=== PATIENT | female | born 1930 | race Caucasian/White ===

== ENCOUNTER → 2017-11-01 | Outpatient (CLI) | payer MEDICARE, OTHER ==
[~2017-11-01] MED LIST: AMITRIPTYLINE10 MG PO; AMLODIPINE5 MG PO; ASPIRIN ADULT L81 M1 PO; CENTRUM SILVER1 TAB PO; CIPRO 400400 MG/200 IV; CLEOCIN IV; HYDROCODONE BIT1 T11 PO; METOPROLOL SUCC50 M1 PO; OCUVITE1 TA2 PO; PRAVACHOL40 MG PO; PRAVASTATIN SOD10 MG PO; VICO75300 PO
== END | disposition home or self-care (01) ==
LOC: WOUNDCARE 00:42
DX: L97.522 Non-pressure chronic ulcer of other part of left foot with fat layer exposed (principal); I73.9 Peripheral vascular disease, unspecified; M86.8X8 Other osteomyelitis, other site; I10 Essential (primary) hypertension; G60.9 Hereditary and idiopathic neuropathy, unspecified; Z87.39 Personal history of other diseases of the musculoskeletal system and connective tissue; Z87.891 Personal history of nicotine dependence

== ENCOUNTER → 2017-11-09 | Outpatient (CLI) | payer MEDICARE, OTHER | END | disposition home or self-care (01) | LOC: WOUNDCARE 02:58 | DX: L97.522 Non-pressure chronic ulcer of other part of left foot with fat layer exposed (principal); I73.9 Peripheral vascular disease, unspecified; G60.9 Hereditary and idiopathic neuropathy, unspecified; I10 Essential (primary) hypertension; M86.8X8 Other osteomyelitis, other site; Z87.39 Personal history of other diseases of the musculoskeletal system and connective tissue; Z87.891 Personal history of nicotine dependence ==

== ENCOUNTER → 2017-11-16 | Outpatient (CLI) | payer MEDICARE, OTHER | LOC: WOUNDCARE 02:57 | DX: L97.522 Non-pressure chronic ulcer of other part of left foot with fat layer exposed (principal); I73.9 Peripheral vascular disease, unspecified; G60.9 Hereditary and idiopathic neuropathy, unspecified; I10 Essential (primary) hypertension; M86.9 Osteomyelitis, unspecified; Z87.891 Personal history of nicotine dependence; Z87.39 Personal history of other diseases of the musculoskeletal system and connective tissue ==

== ENCOUNTER → 2017-11-23 | Outpatient (CLI) | payer MEDICARE, OTHER | END | disposition home or self-care (01) | LOC: WOUNDCARE 04:27 | DX: L97.522 Non-pressure chronic ulcer of other part of left foot with fat layer exposed (principal); I73.9 Peripheral vascular disease, unspecified; G60.9 Hereditary and idiopathic neuropathy, unspecified; I10 Essential (primary) hypertension; M86.8X8 Other osteomyelitis, other site; Z87.891 Personal history of nicotine dependence; Z87.39 Personal history of other diseases of the musculoskeletal system and connective tissue ==

== ENCOUNTER → 2017-11-30 | Outpatient (CLI) | payer MEDICARE, OTHER | END | disposition home or self-care (01) | LOC: WOUNDCARE 02:07 | DX: L97.522 Non-pressure chronic ulcer of other part of left foot with fat layer exposed (principal); I73.9 Peripheral vascular disease, unspecified; G60.9 Hereditary and idiopathic neuropathy, unspecified; I10 Essential (primary) hypertension; M86.9 Osteomyelitis, unspecified; Z87.891 Personal history of nicotine dependence; Z87.39 Personal history of other diseases of the musculoskeletal system and connective tissue ==

== ENCOUNTER → 2017-12-07 | Outpatient (CLI) | payer MEDICARE, OTHER | END | disposition home or self-care (01) | LOC: WOUNDCARE 04:06 | DX: L97.522 Non-pressure chronic ulcer of other part of left foot with fat layer exposed (principal); G60.9 Hereditary and idiopathic neuropathy, unspecified; I73.9 Peripheral vascular disease, unspecified; I10 Essential (primary) hypertension; M86.9 Osteomyelitis, unspecified; Z87.39 Personal history of other diseases of the musculoskeletal system and connective tissue; Z87.891 Personal history of nicotine dependence ==

== ENCOUNTER → 2017-12-14 | Outpatient (CLI) | payer MEDICARE, OTHER | END | disposition home or self-care (01) | LOC: WOUNDCARE 02:32 | DX: L97.522 Non-pressure chronic ulcer of other part of left foot with fat layer exposed (principal); I10 Essential (primary) hypertension; I73.9 Peripheral vascular disease, unspecified; G60.9 Hereditary and idiopathic neuropathy, unspecified; M86.8X8 Other osteomyelitis, other site; Z87.39 Personal history of other diseases of the musculoskeletal system and connective tissue; Z87.891 Personal history of nicotine dependence ==

== ENCOUNTER → 2018-01-04 | Outpatient (CLI) | payer MEDICARE, OTHER | END | disposition home or self-care (01) | LOC: WOUNDCARE 05:42 | DX: L97.522 Non-pressure chronic ulcer of other part of left foot with fat layer exposed (principal); L03.116 Cellulitis of left lower limb; I73.9 Peripheral vascular disease, unspecified; M86.8X8 Other osteomyelitis, other site; G60.9 Hereditary and idiopathic neuropathy, unspecified; I10 Essential (primary) hypertension; Z86.39 Personal history of other endocrine, nutritional and metabolic disease; Z87.891 Personal history of nicotine dependence ==

== ENCOUNTER → 2018-01-11 | Outpatient (CLI) | payer MEDICARE, OTHER | END | disposition home or self-care (01) | LOC: WOUNDCARE 04:14 | DX: L97.522 Non-pressure chronic ulcer of other part of left foot with fat layer exposed (principal); I73.9 Peripheral vascular disease, unspecified; G60.9 Hereditary and idiopathic neuropathy, unspecified; Z87.39 Personal history of other diseases of the musculoskeletal system and connective tissue; I10 Essential (primary) hypertension; M86.8X8 Other osteomyelitis, other site; Z87.891 Personal history of nicotine dependence ==

== ENCOUNTER 2018-01-16 17:03 | Emergency (ER) | payer MEDICARE, OTHER ==
[~2018-01-16] VITALS: Wt 90.7 kg
--- NOTE | ~2018-01-16 | EKG ---
[place], [place] ELECTROCARDIOGRAM REPORT NAME: DEVIN JIANG UNIT #: [id number] ROOM: DOCTOR: EPIPHANY DRAFT REPORT BIRTHDATE: [birth year] [facility] Test Date: 2018-01-16 Test Time: 20:14:53 Pat Name: DEVIN JIANG Department: Room: Gender: F Area Plant Manager: : [id number] Requested By: MARQUISE BURNS PA-C Order Number: [id number] Reading MD: Measurements Intervals [place] Rate: 35 P: -4 SD: 115 QRS: -26 QRSD: 93 T: 51 QT: 571 QTc: 436 Interpretive Statements Sinus bradycardia Borderline short SD interval Inferior infarct, old No previous ECG available for comparison CM:EKGRPT:ELECTROCARDIOGRAM REPORT 13 1718 MARQUISE BURNS PA-C [facility] DRAFT REPORT MARQUISE BURNS PA-C
[2018-01-16 18:26] LABS: BASO % 0.5 % (0.0-1.0); EOS # 0.1 10*3/uL (0.0-0.4); EOS % 0.8 % (1.0-4.0); HEMATOCRIT 39.3 % (37.0-47.0); HEMOGLOBIN 12.4 g/dl (12.0-16.0); LYMPH # 2.1 10*3/uL (1.3-4.4); LYMPH % 24.5 % (27.0-41.0); MEAN CELL VOLUME 95.6 fl (81.0-99.0); MEAN CORPUSCULAR HGB 30.2 pg (27.0-31.0); MEAN CORPUSCULAR HGB CONC 31.6 g/dl (33.0-37.0); MEAN PLATELET VOLUME 11.1 fl (9.6-12.3); MONO # 0.7 10*3/uL (0.1-1.0); MONO % 7.6 % (3.0-9.0); NEUT # 5.8 10*3/uL (2.3-7.9); NEUT % 65.9 % (47.0-73.0); PLATELET COUNT AUTOMATED 203 10*3/uL (130-400); RED BLOOD COUNT 4.11 10*6/uL (4.10-5.10); RED CELL DISTRI WIDTH 15.1 % (0-14.5); WHITE BLOOD COUNT 8.7 10*3/uL (4.8-10.8)
[2018-01-16 18:48] LABS: ALBUMIN 3.6 gm/dl (3.1-4.5); ALKALINE PHOSPHATASE 114 U/L (45-117); BUN 24 mg/dl (7-24); CHLORIDE 103 mmol/L (98-107); POTASSIUM 5.4 mmol/L (3.5-5.1); SGOT/AST 67 IU/L (3-35); SGPT/ALT 51 U/L (12-78); SODIUM 135 mmol/L (136-145); TOTAL PROTEIN 7.2 gm/dL (6.4-8.2)
[2018-01-16 18:51] LABS: TROPONIN I < 0.015 ng/ml (<0.045)
[2018-01-16 19:38] LABS: BILIRUBIN NEGATIVE (NEGATIVE); BLOOD NEGATIVE (NEGATIVE); CLARITY CLOUDY (CLEAR); COLOR YELLOW (YELLOW); GLUCOSE NEGATIVE (NEGATIVE); KETONE TRACE (NEGATIVE); LEUKO ESTERASE 1+ (NEGATIVE); NITRITE NEGATIVE (NEGATIVE); PH 5.5 (5.0-9.0); SPECIFIC GRAVITY >= 1.030 (1.005-1.030); UROBILINOGEN 0.2 E.U./dl (0.2-1.0)
[2018-01-16 19:54] LABS: RBC 0-2 rbc/hpf (0-2)
[2018-01-16 19:55] LABS: BACTERIA 2+; MUCOUS TRACE
== END 2018-01-17 00:14 | disposition short-term general hospital (02) ==
LOC: ED 17:03
PROVIDERS: Physician Assistant
DX: N17.9 Acute kidney failure, unspecified (principal); R00.1 Bradycardia, unspecified; I95.9 Hypotension, unspecified; Z79.899 Other long term (current) drug therapy; Z79.82 Long term (current) use of aspirin; Z90.49 Acquired absence of other specified parts of digestive tract; Z90.710 Acquired absence of both cervix and uterus

== ENCOUNTER → 2018-02-08 | Outpatient (CLI) | payer MEDICARE, OTHER | END | disposition home or self-care (01) | LOC: WOUNDCARE 04:33 | DX: L97.522 Non-pressure chronic ulcer of other part of left foot with fat layer exposed (principal); I73.9 Peripheral vascular disease, unspecified; G60.9 Hereditary and idiopathic neuropathy, unspecified; I10 Essential (primary) hypertension; M86.9 Osteomyelitis, unspecified; Z87.891 Personal history of nicotine dependence; Z87.39 Personal history of other diseases of the musculoskeletal system and connective tissue ==

== ENCOUNTER → 2018-02-15 | Outpatient (CLI) | payer MEDICARE, OTHER | END | disposition home or self-care (01) | LOC: WOUNDCARE 07:24 | DX: L97.522 Non-pressure chronic ulcer of other part of left foot with fat layer exposed (principal); I73.9 Peripheral vascular disease, unspecified; L03.116 Cellulitis of left lower limb; G60.9 Hereditary and idiopathic neuropathy, unspecified; I10 Essential (primary) hypertension; M86.8X8 Other osteomyelitis, other site; Z87.891 Personal history of nicotine dependence; Z87.39 Personal history of other diseases of the musculoskeletal system and connective tissue ==

== ENCOUNTER → 2018-02-21 | Outpatient (CLI) | payer MEDICARE, OTHER | END | disposition home or self-care (01) | LOC: WOUNDCARE 03:36 | DX: L97.522 Non-pressure chronic ulcer of other part of left foot with fat layer exposed (principal); I73.9 Peripheral vascular disease, unspecified; G60.9 Hereditary and idiopathic neuropathy, unspecified; I10 Essential (primary) hypertension; M86.9 Osteomyelitis, unspecified; Z87.39 Personal history of other diseases of the musculoskeletal system and connective tissue; Z87.891 Personal history of nicotine dependence ==

== ENCOUNTER → 2018-02-28 | Outpatient (CLI) | payer MEDICARE, OTHER | END | disposition home or self-care (01) | LOC: WOUNDCARE 02:47 | DX: L97.522 Non-pressure chronic ulcer of other part of left foot with fat layer exposed (principal); L97.821 Non-pressure chronic ulcer of other part of left lower leg limited to breakdown of skin; I73.9 Peripheral vascular disease, unspecified; I10 Essential (primary) hypertension; Z87.39 Personal history of other diseases of the musculoskeletal system and connective tissue; Z87.891 Personal history of nicotine dependence ==

== ENCOUNTER → 2018-03-06 | Outpatient (CLI) | payer MEDICARE, OTHER | END | disposition home or self-care (01) | LOC: WOUNDCARE 01:26 | DX: S91.302D Unspecified open wound, left foot, subsequent encounter (principal); S80.812D Abrasion, left lower leg, subsequent encounter; I10 Essential (primary) hypertension; M86.9 Osteomyelitis, unspecified; Z87.891 Personal history of nicotine dependence; X58.XXXD Exposure to other specified factors, subsequent encounter ==

== ENCOUNTER → 2018-03-08 | Outpatient (CLI) | payer MEDICARE, OTHER | END | disposition home or self-care (01) | LOC: WOUNDCARE 01:06 | DX: L97.522 Non-pressure chronic ulcer of other part of left foot with fat layer exposed (principal); I10 Essential (primary) hypertension; I73.9 Peripheral vascular disease, unspecified; G60.9 Hereditary and idiopathic neuropathy, unspecified; M86.9 Osteomyelitis, unspecified; Z87.39 Personal history of other diseases of the musculoskeletal system and connective tissue; Z87.891 Personal history of nicotine dependence ==

== ENCOUNTER → 2018-03-15 | Outpatient (CLI) | payer MEDICARE, OTHER | END | disposition home or self-care (01) | LOC: WOUNDCARE 02:12 | DX: L97.522 Non-pressure chronic ulcer of other part of left foot with fat layer exposed (principal); L84 Corns and callosities; I73.9 Peripheral vascular disease, unspecified; I10 Essential (primary) hypertension; G60.9 Hereditary and idiopathic neuropathy, unspecified; M86.9 Osteomyelitis, unspecified; Z87.891 Personal history of nicotine dependence; Z87.39 Personal history of other diseases of the musculoskeletal system and connective tissue ==

== ENCOUNTER → 2018-04-08 | Outpatient (CLI) | payer MEDICARE, OTHER | END | disposition home or self-care (01) | LOC: WOUNDCARE 03:59 | DX: L97.522 Non-pressure chronic ulcer of other part of left foot with fat layer exposed (principal); I73.9 Peripheral vascular disease, unspecified; G60.9 Hereditary and idiopathic neuropathy, unspecified; I10 Essential (primary) hypertension; M86.9 Osteomyelitis, unspecified; Z87.891 Personal history of nicotine dependence ==

== ENCOUNTER → 2018-04-19 | Outpatient (CLI) | payer MEDICARE, OTHER | END | disposition home or self-care (01) | LOC: WOUNDCARE 01:01 | DX: L97.522 Non-pressure chronic ulcer of other part of left foot with fat layer exposed (principal); I73.9 Peripheral vascular disease, unspecified; G60.9 Hereditary and idiopathic neuropathy, unspecified; Z87.39 Personal history of other diseases of the musculoskeletal system and connective tissue; I10 Essential (primary) hypertension; M86.9 Osteomyelitis, unspecified; Z87.891 Personal history of nicotine dependence ==

== ENCOUNTER → 2018-05-03 | Outpatient (CLI) | payer MEDICARE, OTHER | END | disposition home or self-care (01) | LOC: WOUNDCARE 01:34 | DX: L97.522 Non-pressure chronic ulcer of other part of left foot with fat layer exposed (principal); I73.9 Peripheral vascular disease, unspecified; G60.9 Hereditary and idiopathic neuropathy, unspecified; I10 Essential (primary) hypertension; M86.9 Osteomyelitis, unspecified; Z87.891 Personal history of nicotine dependence; Z87.39 Personal history of other diseases of the musculoskeletal system and connective tissue ==

== ENCOUNTER → 2018-05-10 | Outpatient (CLI) | payer MEDICARE, OTHER ==
[~2018-05-10] MED LIST changes: +CEPHALEXIN500 M1 PO
== END | disposition home or self-care (01) ==
LOC: WOUNDCARE 04:04
DX: L97.522 Non-pressure chronic ulcer of other part of left foot with fat layer exposed (principal); R60.0 Localized edema; I73.9 Peripheral vascular disease, unspecified; G60.9 Hereditary and idiopathic neuropathy, unspecified; I10 Essential (primary) hypertension; M86.9 Osteomyelitis, unspecified; Z87.891 Personal history of nicotine dependence; Z87.39 Personal history of other diseases of the musculoskeletal system and connective tissue

== ENCOUNTER → 2018-06-07 | Outpatient (CLI) | payer MEDICARE, OTHER ==
[~2018-06-07] MED LIST changes: -CEPHALEXIN500 M1 PO
== END | disposition home or self-care (01) ==
LOC: WOUNDCARE 03:08
DX: L97.522 Non-pressure chronic ulcer of other part of left foot with fat layer exposed (principal); I10 Essential (primary) hypertension; I73.9 Peripheral vascular disease, unspecified; G60.9 Hereditary and idiopathic neuropathy, unspecified; Z87.39 Personal history of other diseases of the musculoskeletal system and connective tissue; Z87.891 Personal history of nicotine dependence

== ENCOUNTER → 2018-06-21 | Outpatient (CLI) | payer MEDICARE, OTHER | END | disposition home or self-care (01) | LOC: WOUNDCARE 01:09 | DX: L97.522 Non-pressure chronic ulcer of other part of left foot with fat layer exposed (principal); I73.9 Peripheral vascular disease, unspecified; G60.9 Hereditary and idiopathic neuropathy, unspecified; I10 Essential (primary) hypertension; M86.8X7 Other osteomyelitis, ankle and foot; Z87.39 Personal history of other diseases of the musculoskeletal system and connective tissue; Z87.891 Personal history of nicotine dependence ==

== ENCOUNTER → 2018-06-28 | Outpatient (CLI) | payer MEDICARE, OTHER ==
[~2018-06-28] MED LIST changes: +CEPHALEXIN500 M1 PO
== END | disposition home or self-care (01) ==
LOC: WOUNDCARE 02:36
DX: L97.522 Non-pressure chronic ulcer of other part of left foot with fat layer exposed (principal); I73.9 Peripheral vascular disease, unspecified; G60.9 Hereditary and idiopathic neuropathy, unspecified; I10 Essential (primary) hypertension; M86.8X7 Other osteomyelitis, ankle and foot; Z87.39 Personal history of other diseases of the musculoskeletal system and connective tissue; Z87.891 Personal history of nicotine dependence

== ENCOUNTER → 2018-07-05 | Outpatient (CLI) | payer MEDICARE, OTHER | END | disposition home or self-care (01) | LOC: WOUNDCARE 02:06 | DX: L97.522 Non-pressure chronic ulcer of other part of left foot with fat layer exposed (principal); L03.116 Cellulitis of left lower limb; I73.9 Peripheral vascular disease, unspecified; G60.9 Hereditary and idiopathic neuropathy, unspecified; I10 Essential (primary) hypertension; M86.8X7 Other osteomyelitis, ankle and foot; Z87.891 Personal history of nicotine dependence; Z87.39 Personal history of other diseases of the musculoskeletal system and connective tissue ==

== ENCOUNTER → 2018-08-29 | Outpatient (CLI) | payer MEDICARE, OTHER | END | disposition home or self-care (01) | LOC: WOUNDCARE 00:16 | DX: L97.522 Non-pressure chronic ulcer of other part of left foot with fat layer exposed (principal); L03.116 Cellulitis of left lower limb; S61.211D Laceration without foreign body of left index finger without damage to nail, subsequent encounter; I73.9 Peripheral vascular disease, unspecified; G60.9 Hereditary and idiopathic neuropathy, unspecified; I10 Essential (primary) hypertension; M86.8X7 Other osteomyelitis, ankle and foot; Z87.891 Personal history of nicotine dependence; Z87.39 Personal history of other diseases of the musculoskeletal system and connective tissue; X58.XXXD Exposure to other specified factors, subsequent encounter ==

== ENCOUNTER → 2018-09-06 | Outpatient (CLI) | payer MEDICARE, OTHER | END | disposition home or self-care (01) | LOC: WOUNDCARE 00:50 | DX: L97.522 Non-pressure chronic ulcer of other part of left foot with fat layer exposed (principal); L03.116 Cellulitis of left lower limb; I10 Essential (primary) hypertension; I73.9 Peripheral vascular disease, unspecified; G60.9 Hereditary and idiopathic neuropathy, unspecified; M86.9 Osteomyelitis, unspecified; Z87.39 Personal history of other diseases of the musculoskeletal system and connective tissue; Z87.891 Personal history of nicotine dependence ==

== ENCOUNTER → 2018-09-13 | Outpatient (CLI) | payer MEDICARE, OTHER | END | disposition home or self-care (01) | LOC: WOUNDCARE 09-12 01:21 → EDSTATUS 09-12 15:55 → WOUNDCARE 09-12 16:00 | DX: T23.211A Burn of second degree of right thumb (nail), initial encounter (principal); L97.522 Non-pressure chronic ulcer of other part of left foot with fat layer exposed; T31.0 Burns involving less than 10% of body surface; I10 Essential (primary) hypertension; I73.9 Peripheral vascular disease, unspecified; G60.9 Hereditary and idiopathic neuropathy, unspecified; M86.9 Osteomyelitis, unspecified; L03.116 Cellulitis of left lower limb; Z87.39 Personal history of other diseases of the musculoskeletal system and connective tissue; Z87.891 Personal history of nicotine dependence; Y26.XXXA Exposure to smoke, fire and flames, undetermined intent, initial encounter; Y93.89 Activity, other specified; Y92.89 Other specified places as the place of occurrence of the external cause; Y99.8 Other external cause status ==

== ENCOUNTER → 2018-11-01 | Outpatient (CLI) | payer MEDICARE, OTHER ==
[~2018-11-01] MED LIST changes: +HYDROCODONE-AC1 EAC1 PO; +NEURONTIN300 MG PO; +VITAMIN D32000 UNI1 PO
== END | disposition home or self-care (01) ==
LOC: WOUNDCARE 01:30
DX: L97.522 Non-pressure chronic ulcer of other part of left foot with fat layer exposed (principal); S61.211D Laceration without foreign body of left index finger without damage to nail, subsequent encounter; S90.932D Unspecified superficial injury of left great toe, subsequent encounter; I73.9 Peripheral vascular disease, unspecified; G60.9 Hereditary and idiopathic neuropathy, unspecified; I10 Essential (primary) hypertension; M86.8X7 Other osteomyelitis, ankle and foot; Z87.891 Personal history of nicotine dependence; Z87.39 Personal history of other diseases of the musculoskeletal system and connective tissue

== ENCOUNTER → 2018-12-06 | Outpatient (CLI) | payer MEDICARE, OTHER ==
[~2018-12-06] MED LIST changes: -HYDROCODONE-AC1 EAC1 PO; -NEURONTIN300 MG PO; -VITAMIN D32000 UNI1 PO
[2018-12-06 15:01] LABS: BASO % 0.7 % (0.0-1.0); EOS # 0.2 10*3/uL (0.0-0.4); EOS % 3.4 % (1.0-4.0); HEMATOCRIT 42.4 % (37.0-47.0); HEMOGLOBIN 13.4 g/dl (12.0-16.0); LYMPH # 1.9 10*3/uL (1.3-4.4); LYMPH % 31.2 % (27.0-41.0); MEAN CELL VOLUME 98.1 fl (81.0-99.0); MEAN CORPUSCULAR HGB CONC 31.6 g/dl (33.0-37.0); MEAN PLATELET VOLUME 11.1 fl (9.6-12.3); MONO # 0.7 10*3/uL (0.1-1.0); MONO % 11.2 % (3.0-9.0); NEUT # 3.2 10*3/uL (2.3-7.9); PLATELET COUNT AUTOMATED 206 10*3/uL (130-400); RED BLOOD COUNT 4.32 10*6/uL (4.10-5.10); RED CELL DISTRI WIDTH 14.6 % (0-14.5)
[2018-12-06 15:35] LABS: ALBUMIN 3.8 gm/dl (3.1-4.5); CREATININE 1.15 mg/dL (0.55-1.02); FREE T4 0.97 ng/dl (0.76-1.46); POTASSIUM 4.2 mmol/L (3.5-5.1); TOTAL PROTEIN 7.6 gm/dL (6.4-8.2)
[2018-12-06 15:42] LABS: THYROID STIM HORMONE (HS) 2.05 uIU/ml (0.358-4.75)
[2018-12-06 15:56] LABS: VITAMIN D, 25-HYDROXY 25.4 ng/mL (30-100)
== END | disposition home or self-care (01) ==
LOC: LAB 14:12
PROVIDERS: Internal Medicine
DX: E78.2 Mixed hyperlipidemia (principal); E11.9 Type 2 diabetes mellitus without complications; I10 Essential (primary) hypertension; E55.9 Vitamin D deficiency, unspecified; D52.9 Folate deficiency anemia, unspecified; D51.9 Vitamin B12 deficiency anemia, unspecified

== ENCOUNTER 2019-01-02 14:00 | Inpatient (IN) | payer MEDICARE, OTHER ==
[~2019-01-02] VITALS: Ht 157.4 cm; Wt 99.0 kg
--- NOTE | ~2019-01-02 | WRIGHTHP ---
[place], [place] PATIENT HISTORY AND PHYSICAL EXAM NAME: DEVIN JIANG UNIT #: [id number] ROOM: 506 DOCTOR: ERNST MONTERO MD BIRTHDATE: [birth year] DOS: 01/02/2019 HISTORY OF PRESENT ILLNESS: This patient is 88 years old. She has chronic poorly healing wounds of the left foot, is seen by the wound clinic, was told to come into the Emergency Room with redness and swelling of the left foot. The patient this morning does not have any complaints. Denies any fever or chills, does not have any abdominal pain, nausea, emesis. Does not have any chest pains or palpitations. She has been on doxycycline as an outpatient. She had a small punctate wound on the big toe with some surrounding redness yesterday and it was worried that this infection was getting worse. PAST MEDICAL HISTORY: Significant for: 1. Chronic peripheral neuropathy with chronic pain. 2. History of osteomyelitis of the toes. 3. Benign hypertension. 4. Coronary artery disease. 5. Primary osteoarthritis. MEDICATIONS: She is currently on are aspirin 81, amlodipine 5, vitamin D 2000, gabapentin 300 t.i.d., Redbird 5 t.i.d., multivitamin 1 tablet daily, Pravachol 40 daily. SOCIAL HISTORY: Nonsmoker, does not use any alcohol. She lives at home with her . PHYSICAL EXAMINATION: GENERAL: She is awake and alert and oriented. VITAL SIGNS: Graphic trend shows a pressure 132/51, pulse of 70, respirations 20, temperature 98.0. LUNGS: Diminished breath sounds. No wheezes, rales or rhonchi heard. HEART: Regular. ABDOMEN: Obese, soft, nontender. EXTREMITIES: Without any edema on the right. Deformed left foot from previous surgeries, small ulcer noticed on the top of the big toe with some minimal redness around. The area was marked yesterday with a blue marker, this area seems to be much smaller this morning. The redness seems to be much smaller this morning. ASSESSMENT AND PLAN: 1. Ulcer of the left big toe area with some minimal cellulitis, on IV antibiotics. The ESR and CRP done were fairly on the low side. ESR 11, CRP 1.22. Doubt there is any deep-seated infection, but an MRI is ordered. 2. Chronic peripheral neuropathy, on gabapentin load and chronic pain management with opiates. We will do an arterial Doppler this morning. 3. Benign hypertension, controlled. 4. Coronary artery disease. Check echocardiogram. [place], [place] PATIENT HISTORY AND PHYSICAL EXAM NAME: DEVIN JIANG UNIT #: [id number] ROOM: [facility] DOCTOR: ERNST MONTERO MD BIRTHDATE: [birth year] ERNST MONTERO MD CM:HISPHYS:PATIENT HISTORY AND PHYSICAL EXAMINATION [id number] ERNST MONTERO MD 01/03/19804 interface
--- NOTE | ~2019-01-02 | DS ---
[place], [place] DISCHARGE SUMMARY NAME: DEVIN JIANG UNIT #: [id number] ROOM: 506 DOCTOR: JESI HASSANMARYURI Florez BIRTHDATE: [birth year] DOS: 01/04/2019 DISCHARGE DIAGNOSES: 1. The patient with cellulitis and osteomyelitis of the first digit of the left foot, to follow up with her yarder boss and follow up with Wound Care Center at [facility]. 2. Chronic peripheral neuropathy. 3. Benign essential hypertension. 4. Coronary artery disease of the [place] vessels. 5. Primary osteoarthritis. HOSPITAL COURSE: The patient was admitted by Dr. Jacquelyn Mireles when she presented with chronic poorly healing wounds of the left foot, being followed by Podiatry and wound center at [facility]. The patient was found to have cellulitis and also osteomyelitis of the first digit of the left foot. She had no fever or chills. Blood cultures are negative, no leukocytosis. The patient was on doxycycline as an outpatient and had a small punctate wound on the toe of the left foot. The patient decided to follow up with Podiatry and since she is asymptomatic otherwise being discharged to home. She has no leukocytosis or any signs of any acute infection. The situation appears to be chronic and needs to be managed at the wound center and by the Podiatry. 1. Chronic peripheral neuropathy with pain controlled with gabapentin. 2. Benign essential hypertension, treated and controlled. The patient is on amlodipine. 3. Mixed hyperlipidemia, treated with simvastatin. 4. Pains are controlled with hydrocodone. LABORATORY DATA: Blood cultures were negative so far. Arterial Dopplers were performed of the lower extremities including echocardiogram with normal left ventricular ejection fraction at 60%. MRI of the foot study showing osteomyelitis of the first digit of the left foot. Hemoglobin A1c was normal at 6 DISCHARGE MANAGEMENT: The patient takes multivitamin daily, vitamin D 2000 units daily, aspirin 81 mg daily, amlodipine 5 mg daily, simvastatin 20 mg a day, gabapentin 300 mg 3 times a day and Vicodin as needed for pain, takes Gadavist intravenously, simvastatin 20 mg daily, gabapentin 300 mg 3 times a day. [place], [place] DISCHARGE SUMMARY NAME: DEVIN JIANG UNIT #: [id number] ROOM: 506 DOCTOR: MARYURI DENNISON MD BIRTHDATE: [birth year] MARYURI DENNISON MD CM:KEV [id number] MARYURI DENNISON MD 01/04/19 2031 interface
[2019-01-02 14:05] VITALS: BP 155/64
[2019-01-02 14:43] LABS: BASO % 0.7 % (0.0-1.0); EOS # 0.2 10*3/uL (0.0-0.4); EOS % 3.4 % (1.0-4.0); HEMATOCRIT 39.6 % (37.0-47.0); HEMOGLOBIN 12.7 g/dl (12.0-16.0); LYMPH # 2.1 10*3/uL (1.3-4.4); LYMPH % 36.7 % (27.0-41.0); MEAN CELL VOLUME 95.2 fl (81.0-99.0); MEAN CORPUSCULAR HGB 30.5 pg (27.0-31.0); MEAN CORPUSCULAR HGB CONC 32.1 g/dl (33.0-37.0); MEAN PLATELET VOLUME 10.8 fl (9.6-12.3); MONO # 0.7 10*3/uL (0.1-1.0); MONO % 12.9 % (3.0-9.0); NEUT # 2.6 10*3/uL (2.3-7.9); NEUT % 45.8 % (47.0-73.0); PLATELET COUNT AUTOMATED 192 10*3/uL (130-400); RED BLOOD COUNT 4.16 10*6/uL (4.10-5.10); RED CELL DISTRI WIDTH 14.9 % (0-14.5); WHITE BLOOD COUNT 5.6 10*3/uL (4.8-10.8)
[2019-01-02 14:59] LABS: CREATININE 1.21 mg/dL (0.55-1.02); POTASSIUM 4.2 mmol/L (3.5-5.1)
[2019-01-02 15:50] VITALS: BP 162/66
[2019-01-02 16:03] LABS: BILIRUBIN NEGATIVE (NEGATIVE); BLOOD NEGATIVE (NEGATIVE); CLARITY CLEAR (CLEAR); COLOR YELLOW (YELLOW); GLUCOSE NEGATIVE (NEGATIVE); KETONE NEGATIVE (NEGATIVE); LEUKO ESTERASE NEGATIVE (NEGATIVE); NITRITE NEGATIVE (NEGATIVE); PH 5.5 (5.0-9.0); UROBILINOGEN 0.2 E.U./dl (0.2-1.0)
[2019-01-02 16:14] LABS: WBC 0-2 wbc/hpf (0-5)
[2019-01-02 16:30] VITALS: BP 140/60
--- NOTE | 2019-01-02 16:30 | NUR ---
A 88, admitted to , under the services of ERNST Lay MD with a diagnosis of WOUND CELLULITIS OF LEFT FOOT. Chief complaint is WOUND CHECK. Patient arrived via bed from ER. Monitor applied. Initial assessment completed. Vital signs taken and recorded. ERNST LAY MD notified of admission to the unit. Orders received. See assessment for past medical history, medications and allergies. Patient and/or family oriented to unit. [facility] visitation policy reviewed. Clothing/patient valuable form completed. MARQUISE CARBAJAL
[2019-01-02] MEDS ORDERED: NEURONTIN300 MG PO (17:47)
[2019-01-02] MEDS ORDERED: VITAMIN D32000 UNI1 PO (17:48)
[2019-01-02] MEDS ORDERED: HYDROCODONE-AC1 EAC1 PO (17:49)
--- NOTE | 2019-01-02 17:50 | NUR ---
VERIFIED HOME MEDICATIONS WITH [facility] IN [facility].
--- NOTE | 2019-01-02 18:00 | NUR ---
CALLED DR MONTERO TO OBTAIN ADMISSION ORDERS.
--- NOTE | 2019-01-02 19:33 | NUR ---
WOUND CARE ORDERS OBTAINED FROM DR MONTERO FOR PT L FOOT STAGE 2 WOUND- MAXORB AND DRY CLEAN DRESSING
[2019-01-02 20:00] VITALS: BP 141/58
--- NOTE | 2019-01-02 20:30 | NUR ---
MEDICATED WITH NORCO FOR C/O BILATERAL KNEE PAIN RATED A 6/10.
--- NOTE | 2019-01-02 22:30 | NUR ---
RESTING IN BED WITH EYES CLOSED; NORCO GIVEN EARLIER APPARENTLY EFFECTIVE.
[2019-01-03] VITALS: BP 132/51
--- NOTE | 2019-01-03 05:10 | NUR ---
DEVIN JIANG [id number] Please refer to the physician's history and physical for past medical history, comorbid conditions, and allergies. Diagnosis: WOUND CELLULITIS VISIT FOR WOUND CHECK Dc Score: 15,AT RISK WOUND DESCRIPTIONS: Wound Number: 1 Location of the wound: left great toe Type of wound: traumatic Thickness: Full Size: 0.6cm x 0.5cm x 0.4cm Tunneling: none Undermining: none Sinus Tract: none Presence of Exudate: Purulent Amount: Light Color: Yellow, red Odor: None Periwound Skin Appearance: Erythema Wound edges: approximated Pain (associated with wound): none at time of assessment How does patient state this happened? pt stated that she has been going to the wound care center for about 1 year was healed then reopened it due to hitting it off of something and she follows with [facility] and wants to continue following with her on the inpatient side as well. Surface the patient is resting on: Isoflex SKIN PREVENTION RECOMMENDATION: 1. Pressure redistribution support surface as appropriate 2. Elevate heels 3. Remove boots/TEDS every shift and reapply 4. Head of bed 30 degrees as tolerated 5. Assess nutrition and hydration 6. Manage moisture 7. Avoid the use of containment devices while in bed 8. Use absorptive products on surfaces limit layers of linens on bed 9. Turn and reposition every 1-2 hours in bed and every 1 hour in chair as tolerated 10. Weight shifts every 15 minutes while up in chair 11. Offloading with pillows or device to keep heels elevated off bed 12. Monitor skin at least every shift 13. Inspect under medical devices twice a day WOUND TREATMENT RECOMMENDATIONS: Consult [facility] patient request follows in the wound care center. Venous and arterial studies to BLE's due to non-healing wound. Imaging studies to area were already completed yesterday and MRI is pending at this time. Full thickness guidelines: Cleanse left medial aspect of great toe with nss and apply maxorb ag, 4x4 abd pad, and lightly wrap with kerlix. Change every other day and as needed. Do not bathe or shower with open wound. (wound care center orders) Heel raiser pro boots to bilateral heels while in bed.
[2019-01-03 08:00] VITALS: BP 158/60
--- NOTE | 2019-01-03 11:00 | NUR ---
MRI RESULTS REPORTED TO . Devika CONSULT ORDERED. NOTIFIED ANSWERING SERVICE OF CONSULT.
[2019-01-03 12:00] VITALS: BP 147/62
--- NOTE | 2019-01-03 13:28 | NUR ---
SPOKE WITH ; SHE SAID TO HOLD OFF ON ALL ANTIBIOTICS FOR NOW UNTIL PT IS SEEN BY PODIATRY. SHE IS AWARE THAT PATIENT IS REFUSING TO BE SEEN BY PODIATRY THAT COMES HERE.
--- NOTE | 2019-01-03 14:39 | NUR ---
Rotary Envelope Machine Operator in to talk to patient. Patient states lives at home with her . There are 0 steps in the home. Physician: Dr. Jacquelyn Mireles Pharmacy: [facility] Patient's level of ADLs: MAX ASSIST Patient has working utilities: yes DME: electric wheelchair Follow-up physician's appointment after d/c: she prefers to make her own follow up appt after discharge Does patient want to access PORTAL?: no Discharge plan discussed with patient. She lives at home with her . Her and her daughter, Janneth, are at the bedside. She needs moderate assistance with her ADLs and gets around in an electric wheelchair. Discussed home health care services and she currently has [facility] in [facility] home which she would like to resume on discharge. When medically stable she will be discharged to home with the resumption of her home health care services. Daughter, Janneth, will transport on discharge. KIP DAWSON
[2019-01-03 16:00] VITALS: BP 145/40
--- NOTE | 2019-01-03 16:26 | NUR ---
MEDICATED WITH PO NORCO ORDERED PER PT REQUEST FOR C/O BILATERAL KNEE PAIN RATED 8/10.
[2019-01-03 20:00] VITALS: BP 141/49
--- NOTE | 2019-01-03 20:35 | NUR ---
NORCO GIVEN FOR C/O PAIN TO RT FOOT RATED 8/10. CALL LIGHT IN REACH. BED ALARM ON. WILL MONITOR FOR EFFECTIVENESS.
--- NOTE | 2019-01-03 21:34 | NUR ---
PER PT, NORCO WAS EFFECTIVE FOR COMPLAINTS OF PAIN TO RT FOOT. CALL LIGHT IN REACH.
[2019-01-04] VITALS: BP 113/62
--- NOTE | 2019-01-04 05:39 | NUR ---
TOLERATED ROUTINE PO MEDS WELL. COMPLAINTS TO RT FOOT PAIN RATED 6/10. CALL LIGHT IN REACH. NORCO PROVIDED. WILL MONITOR.
--- NOTE | 2019-01-04 06:01 | NUR ---
24 HOUR CHART CHECK COMPLETED
--- NOTE | 2019-01-04 06:15 | NUR ---
SLEEPING. NO SXS OF DISTRESS NOTED. CALL LIGHT IN REACH. NORCO SEEMS TO BE EFFECTIVE FOR COMPLAINTS OF PAIN EARLIER.
[2019-01-04 08:00] VITALS: BP 135/50
--- NOTE | 2019-01-04 08:30 | NUR ---
Patient resting quietly with no c/o discomfort. Respirations easy and regular. Vital signs stable. No overt distress. ESTEFANY DUNN
[2019-01-04 12:00] VITALS: BP 147/84
[2019-01-04 16:00] VITALS: BP 157/61
--- NOTE | 2019-01-04 19:09 | NUR ---
PATIENT DISCHARGED WITH DAUGHTER HOME IN A WHEELCHAIR. PATIENT AND DAUGHTER GIVEN DISCHARGE PACKET AND EXPLAINED. STRESSED IMPORTANCE OF FOLLOW-UP WITH PODIATRY AND WOUND CARE SOON POSSIBLE SINCE IT WAS PATIENT'S PREFERENCE THAT SHE RECEIVE CARE FROM THE KEY ACCOUNT EXECUTIVE IN [place]. ALL QUESTIONS AND CONCERNS ADDRESSED. PATIENT DISCHARGED WITH ALL DOCUMENTED BELONGINGS.
--- NOTE | 2019-01-06 10:42 | NUR ---
Faxed home health resumption order to [facility]. Spoke to Hoa at [facility].
== END 2019-01-04 19:09 | disposition home health service (06) | DRG 540 ==
LOC: ED 14:00 → 5E 15:03 → EDHOLD 15:03 → 5E 15:39
PROVIDERS: Nurse Practitioner; ADMIT Internal Medicine
DX: M86.8X7 Other osteomyelitis, ankle and foot (principal); N17.9 Acute kidney failure, unspecified; L03.032 Cellulitis of left toe; L97.524 Non-pressure chronic ulcer of other part of left foot with necrosis of bone; I10 Essential (primary) hypertension; I25.10 Atherosclerotic heart disease of native coronary artery without angina pectoris; G62.9 Polyneuropathy, unspecified; M19.91 Primary osteoarthritis, unspecified site; E78.2 Mixed hyperlipidemia; Z87.01 Personal history of pneumonia (recurrent); Z90.49 Acquired absence of other specified parts of digestive tract; Z90.710 Acquired absence of both cervix and uterus; Z83.3 Family history of diabetes mellitus; Z88.8 Allergy status to other drugs, medicaments and biological substances; Z79.82 Long term (current) use of aspirin; Z79.899 Other long term (current) drug therapy

== ENCOUNTER → 2019-01-21 | Outpatient (CLI) | payer MEDICARE, OTHER ==
[~2019-01-21] MED LIST changes: +HYDROCODONE-AC1 EAC1 PO; +NEURONTIN300 MG PO; +VITAMIN D32000 UNI1 PO
== END | disposition home or self-care (01) ==
LOC: CT 01-16 13:00
DX: I25.10 Atherosclerotic heart disease of native coronary artery without angina pectoris (principal); I73.9 Peripheral vascular disease, unspecified; K57.30 Diverticulosis of large intestine without perforation or abscess without bleeding

== ENCOUNTER 2019-02-10 15:41 | Emergency (ER) | payer MEDICARE, OTHER ==
[~2019-02-10] VITALS: Ht 160 cm; Wt 90.7 kg
== END 2019-02-10 19:21 | disposition home or self-care (01) ==
LOC: ED 15:41
DX: S93.114A Dislocation of interphalangeal joint of right lesser toe(s), initial encounter (principal); S91.114A Laceration without foreign body of right lesser toe(s) without damage to nail, initial encounter; Z79.899 Other long term (current) drug therapy; Z79.82 Long term (current) use of aspirin; Z88.8 Allergy status to other drugs, medicaments and biological substances; X58.XXXA Exposure to other specified factors, initial encounter; Y93.89 Activity, other specified; Y92.89 Other specified places as the place of occurrence of the external cause; Y99.8 Other external cause status

== ENCOUNTER → 2019-02-28 | Outpatient (CLI) | payer MEDICARE, OTHER ==
[2019-02-28 16:59] LABS: CREATININE 1.26 mg/dL (0.55-1.02)
== END | disposition home or self-care (01) ==
LOC: LAB 15:16
PROVIDERS: Podiatrist Foot & Ankle Surgery
DX: M86.8X7 Other osteomyelitis, ankle and foot (principal)

== ENCOUNTER → 2019-03-07 | Outpatient (CLI) | payer MEDICARE, OTHER | END | disposition home or self-care (01) | LOC: MRI 13:00 | DX: M79.89 Other specified soft tissue disorders (principal); M86.172 Other acute osteomyelitis, left ankle and foot ==